=== PATIENT | female | born 1960 | race Caucasian/White ===

== ENCOUNTER 2018-08-03 12:49 | Inpatient (IN) | payer BC ==
[2018-08-03] MEDS: SOD CHLORIDE 0.9% 500 ML IV (14:29)
[2018-08-03 14:30] LABS: ADD MAN DIFF? NO
[2018-08-03 14:33] LABS: BASOPHIL # 0.1 10^3/ul (0.0-0.1); BASOPHILS % 0.6 % (0.0-2.0); EOSINOPHILS # 0.1 10^3/ul (0.0-0.5); EOSINOPHILS % 0.8 % (0.0-7.0); HEMATOCRIT 32.4 % (37.0-47.0); HEMOGLOBIN 10.7 g/dl (12.0-16.0); LYMPHOCYTES # 1.7 10^3/ul (0.8-2.9); LYMPHOCYTES % 20.3 % (15.0-51.0); MEAN CORPUSCULAR HEMOGLOBIN 29.7 pg (29.0-33.0); MEAN PLATELET VOLUME 9.5 fl (7.4-10.4); MONOCYTE # 0.5 10^3/ul (0.3-0.9); MONOCYTES % 6.2 % (0.0-11.0); NEUTROPHILS % 71.2 % (39.0-77.0); PLATELET COUNT 541 10^3/UL (140-415); RED CELL DISTRIBUTION WIDTH 15.6 % (11.5-14.5)
[2018-08-03 14:33] LABS: WHITE BLOOD COUNT 8.4 10^3/ul (4.8-10.8)
[2018-08-03 14:39] LABS: POSITIVE DIFF @See below
[2018-08-03 14:52] LABS: INR 1.65; PROTIME 19.6 Sec (11.9-14.9); PT RATIO 1.5
[2018-08-03 14:53] LABS: ALANINE AMINOTRANSFERASE 76 IU/L (13-69); ALBUMIN 3.3 g/dl (3.3-4.9); ALBUMIN/GLOBULIN RATIO 0.68; ALKALINE PHOSPHATASE 726 IU/L (42-121); ANION GAP 10 (5-13); ASPARTATE AMINO TRANSFERASE 117 IU/L (15-46); BILIRUBIN,INDIRECT 0.8 mg/dl (0-1.1); BILIRUBIN,TOTAL 4.4 mg/dl (0.2-1.3); BLOOD UREA NITROGEN 13 mg/dl (7-20); CALCIUM 9.1 mg/dl (8.4-10.2); CARBON DIOXIDE 25 mmol/L (21-31); CHLORIDE 104 mmol/L (97-110); CREATININE 0.45 mg/dl (0.44-1.00); Estimated GFR > 60 mL/min (>60); GLUCOSE 157 mg/dl (70-220); LIPASE 220 U/L (23-300); PARTIAL THROMBOPLASTIN TIME 43.1 Sec (23.0-35.0); POTASSIUM 3.9 mmol/L (3.5-5.1); SODIUM 139 mmol/L (135-144); TOTAL PROTEIN 8.1 g/dl (6.1-8.1)
[2018-08-03] MEDS: DIPHENHYDRAMINE 50 MG INJ IV (15:39)
[2018-08-03] MEDS ORDERED: SOD CHLORIDE 0.9% 1,000 ML IV (16:28)
[2018-08-03] MEDS ORDERED: ONDANSETRON 4 MG INJ IV ×2 (16:30→19:00)
[2018-08-03] MEDS ORDERED: ACETAMINOPHEN 325 MG TAB PO (16:30)
[2018-08-03 16:31] LABS: ANISOCYTOSIS 2+ (0-0); EOSINOPHILS % (M) 2 % (0-7); LYMPHOCYTES #M 1.1 10^3/ul (0.8-2.9); LYMPHOCYTES % (M) 14 % (15-51); MONOCYTE #M 0.6 10^3/ul (0.3-0.9); MONOCYTES % (M) 8 % (0-11); PLATELET MORPHOLOGY COMMENT @See below; SEGMENTED NEUTROPHILS (M) % 76 % (39-77); SMUDGE%M 3 % (0-0)
[2018-08-03] MEDS ORDERED: GLUCOSE GEL 15 GRAM TUBE BUCCAL (19:00)
[2018-08-03] MEDS ORDERED: GLUCAGON 1 MG INJ IM (19:00)
[2018-08-03] MEDS ORDERED: DEXTROSE 50% 50 ML SYRINGE IV (19:00)
[2018-08-03] MEDS ORDERED: GLUCOSE GEL 15 GRAM TUBE PO (19:00)
[2018-08-03] MEDS: INSULIN ASPART [NOVOLOG] 3 ML PEN SC (21:00)
[2018-08-03] MEDS: FAMOTIDINE 20 MG TAB PO (22:35)
[2018-08-03] MEDS: INSULIN GLARGINE [LANTus] (100 UNITS/ML) SYG SC (22:37)
[2018-08-03] MEDS: IBUPROFEN 600 MG TAB PO (23:07)
[2018-08-04] MEDS: ACCU-CHEK XX (02:00)
[2018-08-04 05:48] LABS: ADD MAN DIFF? NO
[2018-08-04 05:54] LABS: BASOPHILS % 0.6 % (0.0-2.0); EOSINOPHILS # 0.1 10^3/ul (0.0-0.5); EOSINOPHILS % 1.4 % (0.0-7.0); HEMOGLOBIN 10.8 g/dl (12.0-16.0); LYMPHOCYTES # 1.4 10^3/ul (0.8-2.9); LYMPHOCYTES % 19.7 % (15.0-51.0); MEAN CORPUSCULAR HEMOGLOBIN 30.1 pg (29.0-33.0); MEAN CORPUSCULAR HGB CONC 32.7 g/dl (32.0-37.0); MEAN CORPUSCULAR VOLUME 91.9 fl (82.0-101.0); MONOCYTE # 0.6 10^3/ul (0.3-0.9); NEUTROPHIL # 5.1 10^3/ul (1.6-7.5); NEUTROPHILS % 69.6 % (39.0-77.0); PLATELET COUNT 517 10^3/UL (140-415); RED BLOOD COUNT 3.59 10^6/ul (4.20-5.40); RED CELL DISTRIBUTION WIDTH 16.1 % (11.5-14.5)
[2018-08-04 05:54] LABS: WHITE BLOOD COUNT 7.3 10^3/ul (4.8-10.8)
[2018-08-04 07:11] LABS: ALANINE AMINOTRANSFERASE 76 IU/L (13-69); ALBUMIN 3.2 g/dl (3.3-4.9); ALBUMIN/GLOBULIN RATIO 0.62; ALKALINE PHOSPHATASE 784 IU/L (42-121); ANION GAP 13 (5-13); ASPARTATE AMINO TRANSFERASE 109 IU/L (15-46); BILIRUBIN,TOTAL 4.8 mg/dl (0.2-1.3); BLOOD UREA NITROGEN 11 mg/dl (7-20); CALCIUM 9.3 mg/dl (8.4-10.2); CARBON DIOXIDE 26 mmol/L (21-31); CHLORIDE 106 mmol/L (97-110); CHOL/HDL RATIO 13.1 RATIO; CHOLESTEROL 276 mg/dl (100-200); CREATININE 0.53 mg/dl (0.44-1.00); Estimated GFR > 60 mL/min (>60); GLUCOSE 93 mg/dl (70-220); HDL CHOLESTEROL 21 mg/dl (35-98); LDL CHOLESTEROL,CALCULATED 179 mg/dl; POTASSIUM 4.5 mmol/L (3.5-5.1); SODIUM 145 mmol/L (135-144); TOTAL PROTEIN 8.3 g/dl (6.1-8.1); TRIGLYCERIDES 381 mg/dl (0-149)
[2018-08-04] MEDS: INSULIN ASPART [NOVOLOG] 3 ML PEN SC ×4 (08:00→21:00)
[2018-08-04] MEDS: FAMOTIDINE 20 MG TAB PO ×2 (08:36→21:04)
[2018-08-04 08:37] LABS: HEMOGLOBIN A1C 6.1 % (0-5.9)
[2018-08-04] MEDS: METOPROLOL (XL) 50 MG TAB PO (08:38)
[2018-08-04] MEDS: DIPHENHYDRAMINE 25 MG CAP PO ×2 (10:20→22:42)
[2018-08-04] MEDS: IBUPROFEN 600 MG TAB PO (17:36)
[2018-08-04] MEDS: PHYTONADIONE 10 MG/ML INJ SC (21:04)
[2018-08-04] MEDS: INSULIN GLARGINE [LANTus] (100 UNITS/ML) SYG SC (21:08)
[2018-08-05] MEDS: ACCU-CHEK XX (02:00)
[2018-08-05 05:35] LABS: INR 1.26; PROTIME 15.9 Sec (11.9-14.9); PT RATIO 1.2
[2018-08-05 05:36] LABS: PARTIAL THROMBOPLASTIN TIME 38.7 Sec (23.0-35.0)
[2018-08-05] MEDS: INSULIN ASPART [NOVOLOG] 3 ML PEN SC ×5 (08:00→20:39)
[2018-08-05] MEDS: FAMOTIDINE 20 MG TAB PO ×2 (08:32→20:38)
[2018-08-05] MEDS: METOPROLOL (XL) 50 MG TAB PO (08:32)
[2018-08-05] MEDS: DEXTROSE 5%-0.45% NACL 1,000 ML IV (11:22)
[2018-08-05] MEDS: DIPHENHYDRAMINE 25 MG CAP PO (15:00)
[2018-08-05] MEDS: INSULIN GLARGINE [LANTus] (100 UNITS/ML) SYG SC (20:39)
[2018-08-05] MEDS: IBUPROFEN 600 MG TAB PO (22:57)
[2018-08-06] MEDS: ACCU-CHEK XX (01:14)
[2018-08-06] MEDS ORDERED: ACCU-CHEK XX (02:00)
[2018-08-06 06:22] LABS: ADD MAN DIFF? NO
[2018-08-06 06:29] LABS: BASOPHILS % 0.3 % (0.0-2.0); EOSINOPHILS # 0.1 10^3/ul (0.0-0.5); EOSINOPHILS % 1.1 % (0.0-7.0); HEMATOCRIT 29.8 % (37.0-47.0); HEMOGLOBIN 10.6 g/dl (12.0-16.0); LYMPHOCYTES # 1.5 10^3/ul (0.8-2.9); LYMPHOCYTES % 23.8 % (15.0-51.0); MEAN CORPUSCULAR HEMOGLOBIN 32.7 pg (29.0-33.0); MEAN CORPUSCULAR HGB CONC 35.6 g/dl (32.0-37.0); MEAN PLATELET VOLUME 10.3 fl (7.4-10.4); MONOCYTE # 0.5 10^3/ul (0.3-0.9); MONOCYTES % 7.8 % (0.0-11.0); NEUTROPHIL # 4.2 10^3/ul (1.6-7.5); NEUTROPHILS % 66.2 % (39.0-77.0); NUCLEATED RED BLOOD CELLS # 0.2 10^3/ul (0.0-0.0); NUCLEATED RED BLOOD CELLS% 2.4 /100WBC (0.0-0.0); PLATELET COUNT 470 10^3/UL (140-415); RED BLOOD COUNT 3.24 10^6/ul (4.20-5.40); RED CELL DISTRIBUTION WIDTH 16.5 % (11.5-14.5)
[2018-08-06 06:29] LABS: WHITE BLOOD COUNT 6.4 10^3/ul (4.8-10.8)
[2018-08-06 07:02] LABS: BLOOD UREA NITROGEN 15 mg/dl (7-20); CALCIUM 8.9 mg/dl (8.4-10.2); CARBON DIOXIDE 27 mmol/L (21-31); CREATININE 0.57 mg/dl (0.44-1.00); Estimated GFR > 60 mL/min (>60)
[2018-08-06 07:09] LABS: ANION GAP 10 (5-13); CHLORIDE 104 mmol/L (97-110); POTASSIUM 3.7 mmol/L (3.5-5.1); SODIUM 141 mmol/L (135-144)
[2018-08-06 07:16] LABS: GLUCOSE 46 mg/dl (70-220)
[2018-08-06] MEDS: DEXTROSE 50% 50 ML SYRINGE IV ×2 (07:21→08:38)
[2018-08-06] MEDS: INSULIN ASPART [NOVOLOG] 3 ML PEN SC ×4 (08:00→20:28)
[2018-08-06] MEDS: DIPHENHYDRAMINE 25 MG CAP PO (09:27)
[2018-08-06] MEDS: FAMOTIDINE 20 MG TAB PO ×2 (09:30→20:29)
[2018-08-06] MEDS: METOPROLOL (XL) 50 MG TAB PO (09:30)
[2018-08-06] MEDS: INSULIN GLARGINE [LANTus] (100 UNITS/ML) SYG SC (20:29)
[2018-08-06] MEDS: IBUPROFEN 600 MG TAB PO (21:47)
[2018-08-07] MEDS: GLUCOSE GEL 15 GRAM TUBE PO (01:50)
[2018-08-07] MEDS: ACCU-CHEK XX (03:00)
[2018-08-07 06:23] LABS: INR 1.04; PROTIME 13.7 Sec (11.9-14.9); PT RATIO 1.1
[2018-08-07 06:24] LABS: PARTIAL THROMBOPLASTIN TIME 34.9 Sec (23.0-35.0)
[2018-08-07 07:03] LABS: ALANINE AMINOTRANSFERASE 63 IU/L (13-69); ALBUMIN 3.1 g/dl (3.3-4.9); ALBUMIN/GLOBULIN RATIO 0.59; ALKALINE PHOSPHATASE 775 IU/L (42-121); ANION GAP 9 (5-13); ASPARTATE AMINO TRANSFERASE 117 IU/L (15-46); BILIRUBIN,TOTAL 5.1 mg/dl (0.2-1.3); BLOOD UREA NITROGEN 13 mg/dl (7-20); CALCIUM 8.9 mg/dl (8.4-10.2); CARBON DIOXIDE 27 mmol/L (21-31); CHLORIDE 105 mmol/L (97-110); CREATININE 0.54 mg/dl (0.44-1.00); Estimated GFR > 60 mL/min (>60); GLUCOSE 53 mg/dl (70-220); POTASSIUM 3.6 mmol/L (3.5-5.1); SODIUM 141 mmol/L (135-144); TOTAL PROTEIN 8.3 g/dl (6.1-8.1)
[2018-08-07] MEDS: DEXTROSE 50% 50 ML SYRINGE IV (07:43)
[2018-08-07] MEDS: INSULIN ASPART [NOVOLOG] 3 ML PEN SC ×4 (08:00→21:00)
[2018-08-07] MEDS: DIPHENHYDRAMINE 25 MG CAP PO (09:10)
[2018-08-07] MEDS: METOPROLOL (XL) 50 MG TAB PO (09:12)
[2018-08-07] MEDS: FAMOTIDINE 20 MG TAB PO ×2 (09:12→21:14)
[2018-08-07] MEDS: hydrOXYzine HCL 25 MG TAB PO (10:46)
[2018-08-07] MEDS: INSULIN GLARGINE [LANTus] (100 UNITS/ML) SYG SC ×2 (20:00→21:26)
[2018-08-08] MEDS: INSULIN ASPART [NOVOLOG] 3 ML PEN SC ×6 (00:54→21:09)
[2018-08-08] MEDS: ACCU-CHEK XX (02:15)
[2018-08-08 05:37] LABS: ADD MAN DIFF? NO
[2018-08-08 05:44] LABS: WHITE BLOOD COUNT 7.1 10^3/ul (4.8-10.8)
[2018-08-08 05:44] LABS: BASOPHILS % 0.6 % (0.0-2.0); EOSINOPHILS # 0.1 10^3/ul (0.0-0.5); HEMATOCRIT 29.5 % (37.0-47.0); HEMOGLOBIN 10.6 g/dl (12.0-16.0); LYMPHOCYTES # 1.6 10^3/ul (0.8-2.9); LYMPHOCYTES % 22.6 % (15.0-51.0); MEAN CORPUSCULAR HEMOGLOBIN 33.2 pg (29.0-33.0); MEAN CORPUSCULAR HGB CONC 35.9 g/dl (32.0-37.0); MEAN CORPUSCULAR VOLUME 92.5 fl (82.0-101.0); MEAN PLATELET VOLUME 9.9 fl (7.4-10.4); MONOCYTE # 0.5 10^3/ul (0.3-0.9); MONOCYTES % 7.2 % (0.0-11.0); NEUTROPHIL # 4.8 10^3/ul (1.6-7.5); NEUTROPHILS % 67.2 % (39.0-77.0); NUCLEATED RED BLOOD CELLS% 0.4 /100WBC (0.0-0.0); PLATELET COUNT 425 10^3/UL (140-415); RED BLOOD COUNT 3.19 10^6/ul (4.20-5.40)
[2018-08-08] MEDS ORDERED: LIDOCAINE 2% (SDV) 5 ML INJ (07:00)
[2018-08-08] MEDS ORDERED: ROCURONIUM 50 MG INJ (07:00)
[2018-08-08] MEDS: FAMOTIDINE 20 MG TAB PO ×2 (09:00→21:07)
[2018-08-08] MEDS: METOPROLOL (XL) 50 MG TAB PO (09:00)
[2018-08-08] MEDS: hydrOXYzine HCL 25 MG TAB PO (12:20)
[2018-08-08] MEDS: DEXTROSE 5%-0.45% NACL 1,000 ML IV (12:28)
[2018-08-08] MEDS ORDERED: PROPOFOL 20 ML (16:32)
[2018-08-08] MEDS ORDERED: DEXAMETHASONE 4 MG/ML 5 ML INJ (16:51)
[2018-08-08] MEDS ORDERED: ONDANSETRON 4 MG INJ (16:52)
[2018-08-08] MEDS ORDERED: IOHEXOL 300MG/ML 30 ML BTL (17:44)
[2018-08-08] MEDS ORDERED: METOCLOPRAMIDE 10 MG INJ IV (18:00)
[2018-08-08] MEDS ORDERED: hydrALAzine 20 MG INJ IV (18:00)
[2018-08-08] MEDS ORDERED: ALBUTEROL 0.083% (NEB) 2.5 MG/3 ML AMP HHN (18:00)
[2018-08-08] MEDS ORDERED: DIPHENHYDRAMINE 50 MG INJ IV (18:00)
[2018-08-08] MEDS ORDERED: LABETALOL HCL 20MG INJ IV (18:00)
[2018-08-08] MEDS ORDERED: FENTAnyl 50 MCG/ML VIAL IV ×3 (18:00)
[2018-08-08] MEDS ORDERED: ONDANSETRON 4 MG INJ IV (18:00)
[2018-08-08] MEDS ORDERED: MEPERIDINE 25 MG INJ IV (18:00)
[2018-08-08] MEDS ORDERED: EPHEDrine SULFATE 50 MG/5 ML SYG IV (18:00)
[2018-08-08] MEDS ORDERED: MIDAZOLAM 1 MG/ML 2 ML INJ IV (18:00)
[2018-08-08] MEDS ORDERED: HYDROmorphONE 1 MG/5 ML IV SYRINGE IV ×3 (18:00)
[2018-08-08] MEDS: LEVOFLOXACIN 500MG/D5W (PMX) 100 ML IVPB (18:34)
[2018-08-08] MEDS: INDOMETHACIN 50 MG SUPP PR (19:00)
[2018-08-08] MEDS: INSULIN GLARGINE [LANTus] (100 UNITS/ML) SYG SC (21:08)
[2018-08-09] MEDS: ACCU-CHEK XX (01:16)
[2018-08-09] MEDS ORDERED: ACCU-CHEK XX (02:00)
[2018-08-09 06:30] LABS: ANION GAP 10 (5-13); BLOOD UREA NITROGEN 14 mg/dl (7-20); CALCIUM 9.3 mg/dl (8.4-10.2); CARBON DIOXIDE 24 mmol/L (21-31); CHLORIDE 106 mmol/L (97-110); CREATININE 0.51 mg/dl (0.44-1.00); Estimated GFR > 60 mL/min (>60); GLUCOSE 245 mg/dl (70-220); POTASSIUM 4.7 mmol/L (3.5-5.1); SODIUM 140 mmol/L (135-144)
[2018-08-09] MEDS: INSULIN ASPART [NOVOLOG] 3 ML PEN SC ×4 (08:11→20:32)
[2018-08-09] MEDS: FAMOTIDINE 20 MG TAB PO ×2 (08:12→20:30)
[2018-08-09] MEDS: METOPROLOL (XL) 50 MG TAB PO (13:30)
[2018-08-09] MEDS: hydrOXYzine HCL 25 MG TAB PO ×2 (13:41→21:07)
[2018-08-09] MEDS: LEVOFLOXACIN 500MG/D5W (PMX) 100 ML IVPB (17:51)
[2018-08-09] MEDS: METOPROLOL 25 MG TAB PO (20:30)
[2018-08-09] MEDS: INSULIN GLARGINE [LANTus] (100 UNITS/ML) SYG SC (20:31)
[2018-08-10] MEDS: ACCU-CHEK XX (02:00)
[2018-08-10 06:41] LABS: ALANINE AMINOTRANSFERASE 76 IU/L (13-69); ALBUMIN 3.1 g/dl (3.3-4.9); ALBUMIN/GLOBULIN RATIO 0.59; ALKALINE PHOSPHATASE 706 IU/L (42-121); ANION GAP 10 (5-13); ASPARTATE AMINO TRANSFERASE 121 IU/L (15-46); BILIRUBIN,TOTAL 3.8 mg/dl (0.2-1.3); BLOOD UREA NITROGEN 18 mg/dl (7-20); CALCIUM 8.6 mg/dl (8.4-10.2); CARBON DIOXIDE 27 mmol/L (21-31); CHLORIDE 104 mmol/L (97-110); CREATININE 0.63 mg/dl (0.44-1.00); Estimated GFR > 60 mL/min (>60); GLUCOSE 114 mg/dl (70-220); POTASSIUM 4.1 mmol/L (3.5-5.1); SODIUM 141 mmol/L (135-144); TOTAL PROTEIN 8.3 g/dl (6.1-8.1)
[2018-08-10] MEDS: INSULIN ASPART [NOVOLOG] 3 ML PEN SC ×4 (08:00→21:00)
[2018-08-10] MEDS: METOPROLOL 25 MG TAB PO (09:00)
[2018-08-10] MEDS: IBUPROFEN 600 MG TAB PO (09:46)
[2018-08-10] MEDS: FAMOTIDINE 20 MG TAB PO ×2 (09:46→21:17)
[2018-08-10] MEDS: hydrOXYzine HCL 25 MG TAB PO ×2 (09:46→18:29)
[2018-08-10] MEDS: METOCLOPRAMIDE 5 MG TAB PO ×2 (12:33→21:00)
[2018-08-10] MEDS: LEVOFLOXACIN 500MG/D5W (PMX) 100 ML IVPB (18:30)
[2018-08-10] MEDS: INSULIN GLARGINE [LANTus] (100 UNITS/ML) SYG SC (21:18)
[2018-08-11] MEDS: ACCU-CHEK XX (02:00)
[2018-08-11] MEDS: LEVOFLOXACIN 500 MG TAB PO (05:30)
[2018-08-11] MEDS: IBUPROFEN 600 MG TAB PO (05:36)
[2018-08-11 07:13] LABS: ADD MAN DIFF? NO
[2018-08-11 07:14] LABS: WHITE BLOOD COUNT 6.5 10^3/ul (4.8-10.8)
[2018-08-11 07:14] LABS: BASOPHILS % 0.6 % (0.0-2.0); EOSINOPHILS # 0.1 10^3/ul (0.0-0.5); EOSINOPHILS % 1.1 % (0.0-7.0); HEMATOCRIT 31.5 % (37.0-47.0); HEMOGLOBIN 10.4 g/dl (12.0-16.0); LYMPHOCYTES # 1.5 10^3/ul (0.8-2.9); LYMPHOCYTES % 22.6 % (15.0-51.0); MEAN CORPUSCULAR HEMOGLOBIN 30.1 pg (29.0-33.0); MEAN PLATELET VOLUME 10.1 fl (7.4-10.4); MONOCYTE # 0.5 10^3/ul (0.3-0.9); NEUTROPHIL # 4.4 10^3/ul (1.6-7.5); NEUTROPHILS % 66.9 % (39.0-77.0); PLATELET COUNT 427 10^3/UL (140-415); RED BLOOD COUNT 3.46 10^6/ul (4.20-5.40)
[2018-08-11 07:31] LABS: ALANINE AMINOTRANSFERASE 71 IU/L (13-69); ALBUMIN 3.2 g/dl (3.3-4.9); ALBUMIN/GLOBULIN RATIO 0.64; ALKALINE PHOSPHATASE 731 IU/L (42-121); ANION GAP 9 (5-13); ASPARTATE AMINO TRANSFERASE 113 IU/L (15-46); BILIRUBIN,INDIRECT 0.9 mg/dl (0-1.1); BILIRUBIN,TOTAL 3.8 mg/dl (0.2-1.3); BLOOD UREA NITROGEN 16 mg/dl (7-20); CARBON DIOXIDE 27 mmol/L (21-31); CHLORIDE 106 mmol/L (97-110); CREATININE 0.55 mg/dl (0.44-1.00); Estimated GFR > 60 mL/min (>60); GLUCOSE 114 mg/dl (70-220); POTASSIUM 3.9 mmol/L (3.5-5.1); SODIUM 142 mmol/L (135-144); TOTAL PROTEIN 8.2 g/dl (6.1-8.1)
[2018-08-11] MEDS: INSULIN ASPART [NOVOLOG] 3 ML PEN SC ×4 (08:00→20:22)
[2018-08-11] MEDS: METOCLOPRAMIDE 5 MG TAB PO ×3 (09:03→20:20)
[2018-08-11] MEDS: FAMOTIDINE 20 MG TAB PO ×2 (09:03→20:20)
[2018-08-11] MEDS: INSULIN GLARGINE [LANTus] (100 UNITS/ML) SYG SC (20:22)
[2018-08-11] MEDS: hydrOXYzine HCL 25 MG TAB PO (20:29)
[2018-08-12] MEDS: ACCU-CHEK XX (01:05)
[2018-08-12] MEDS: LEVOFLOXACIN 500 MG TAB PO (05:52)
[2018-08-12 06:27] LABS: ALANINE AMINOTRANSFERASE 66 IU/L (13-69); ALBUMIN 3.2 g/dl (3.3-4.9); ALBUMIN/GLOBULIN RATIO 0.64; ALKALINE PHOSPHATASE 701 IU/L (42-121); ANION GAP 9 (5-13); ASPARTATE AMINO TRANSFERASE 118 IU/L (15-46); BILIRUBIN,TOTAL 3.2 mg/dl (0.2-1.3); BLOOD UREA NITROGEN 14 mg/dl (7-20); CALCIUM 9.1 mg/dl (8.4-10.2); CARBON DIOXIDE 23 mmol/L (21-31); CHLORIDE 109 mmol/L (97-110); Estimated GFR > 60 mL/min (>60); GLUCOSE 82 mg/dl (70-220); POTASSIUM 4.2 mmol/L (3.5-5.1); SODIUM 141 mmol/L (135-144); TOTAL PROTEIN 8.2 g/dl (6.1-8.1)
[2018-08-12] MEDS: INSULIN ASPART [NOVOLOG] 3 ML PEN SC ×4 (08:00→21:22)
[2018-08-12] MEDS: METOCLOPRAMIDE 5 MG TAB PO ×2 (09:55→13:00)
[2018-08-12] MEDS: FAMOTIDINE 20 MG TAB PO ×2 (09:55→21:21)
[2018-08-12] MEDS: hydrOXYzine HCL 25 MG TAB PO ×2 (10:01→21:21)
[2018-08-12] MEDS ORDERED: METOCLOPRAMIDE 5 MG TAB PO (16:00)
[2018-08-12] MEDS: INSULIN GLARGINE [LANTus] (100 UNITS/ML) SYG SC (21:23)
[2018-08-13] MEDS: ACCU-CHEK XX (02:00)
[2018-08-13] MEDS: DIPHENHYDRAMINE 25 MG CAP PO (02:28)
[2018-08-13 06:57] LABS: ALANINE AMINOTRANSFERASE 64 IU/L (13-69); ALBUMIN 3.2 g/dl (3.3-4.9); ALBUMIN/GLOBULIN RATIO 0.69; ALKALINE PHOSPHATASE 657 IU/L (42-121); ANION GAP 9 (5-13); ASPARTATE AMINO TRANSFERASE 110 IU/L (15-46); BILIRUBIN,INDIRECT 0.8 mg/dl (0-1.1); BILIRUBIN,TOTAL 2.4 mg/dl (0.2-1.3); BLOOD UREA NITROGEN 13 mg/dl (7-20); CALCIUM 8.9 mg/dl (8.4-10.2); CARBON DIOXIDE 23 mmol/L (21-31); CHLORIDE 107 mmol/L (97-110); CREATININE 0.47 mg/dl (0.44-1.00); Estimated GFR > 60 mL/min (>60); GLUCOSE 198 mg/dl (70-220); POTASSIUM 3.8 mmol/L (3.5-5.1); SODIUM 139 mmol/L (135-144); TOTAL PROTEIN 7.8 g/dl (6.1-8.1)
[2018-08-13] MEDS: hydrOXYzine HCL 25 MG TAB PO ×3 (08:10→22:34)
[2018-08-13] MEDS: MEGESTROL (40 MG/ML) 10ML CUP PO (08:10)
[2018-08-13] MEDS: FAMOTIDINE 20 MG TAB PO ×2 (08:10→20:51)
[2018-08-13] MEDS: INSULIN ASPART [NOVOLOG] 3 ML PEN SC ×4 (08:14→20:54)
[2018-08-13] MEDS: IBUPROFEN 600 MG TAB PO (15:31)
[2018-08-13] MEDS: INSULIN GLARGINE [LANTus] (100 UNITS/ML) SYG SC (20:55)
[2018-08-14] MEDS: ACCU-CHEK XX (02:00)
[2018-08-14 05:22] LABS: ADD MAN DIFF? NO
[2018-08-14 05:33] LABS: WHITE BLOOD COUNT 6.1 10^3/ul (4.8-10.8)
[2018-08-14 05:33] LABS: BASOPHILS % 0.5 % (0.0-2.0); EOSINOPHILS % 0.7 % (0.0-7.0); HEMOGLOBIN 10.6 g/dl (12.0-16.0); LYMPHOCYTES # 1.4 10^3/ul (0.8-2.9); LYMPHOCYTES % 23.8 % (15.0-51.0); MEAN CORPUSCULAR HEMOGLOBIN 29.9 pg (29.0-33.0); MEAN CORPUSCULAR HGB CONC 33.1 g/dl (32.0-37.0); MEAN CORPUSCULAR VOLUME 90.4 fl (82.0-101.0); MEAN PLATELET VOLUME 9.9 fl (7.4-10.4); MONOCYTE # 0.4 10^3/ul (0.3-0.9); MONOCYTES % 7.3 % (0.0-11.0); NEUTROPHIL # 4.1 10^3/ul (1.6-7.5); PLATELET COUNT 388 10^3/UL (140-415); RED BLOOD COUNT 3.54 10^6/ul (4.20-5.40)
[2018-08-14 06:31] LABS: ALANINE AMINOTRANSFERASE 70 IU/L (13-69); ALKALINE PHOSPHATASE 599 IU/L (42-121); ASPARTATE AMINO TRANSFERASE 101 IU/L (15-46); BILIRUBIN,INDIRECT 0.8 mg/dl (0-1.1); BILIRUBIN,TOTAL 1.7 mg/dl (0.2-1.3); TOTAL PROTEIN 7.4 g/dl (6.1-8.1)
[2018-08-14 06:36] LABS: ALANINE AMINOTRANSFERASE 67 IU/L (13-69); ALBUMIN 3.2 g/dl (3.3-4.9); ALBUMIN/GLOBULIN RATIO 0.69; ALKALINE PHOSPHATASE 598 IU/L (42-121); ANION GAP 8 (5-13); ASPARTATE AMINO TRANSFERASE 98 IU/L (15-46); BILIRUBIN,INDIRECT 0.7 mg/dl (0-1.1); BILIRUBIN,TOTAL 1.6 mg/dl (0.2-1.3); BLOOD UREA NITROGEN 14 mg/dl (7-20); CALCIUM 8.7 mg/dl (8.4-10.2); CARBON DIOXIDE 25 mmol/L (21-31); CHLORIDE 107 mmol/L (97-110); CREATININE 0.46 mg/dl (0.44-1.00); Estimated GFR > 60 mL/min (>60); GLUCOSE 333 mg/dl (70-220); POTASSIUM 4.2 mmol/L (3.5-5.1); SODIUM 140 mmol/L (135-144); TOTAL PROTEIN 7.8 g/dl (6.1-8.1)
[2018-08-14] MEDS: INSULIN ASPART [NOVOLOG] 3 ML PEN SC ×6 (07:58→21:03)
[2018-08-14] MEDS: FAMOTIDINE 20 MG TAB PO ×2 (09:08→20:44)
[2018-08-14] MEDS: MEGESTROL (40 MG/ML) 10ML CUP PO (09:08)
[2018-08-14] MEDS: hydrOXYzine HCL 25 MG TAB PO ×2 (09:08→16:09)
[2018-08-14] MEDS: INSULIN GLARGINE [LANTus] (100 UNITS/ML) SYG SC (20:45)
[2018-08-15] MEDS: hydrOXYzine HCL 25 MG TAB PO ×4 (01:13→20:29)
[2018-08-15] MEDS: IBUPROFEN 600 MG TAB PO ×2 (01:18→21:03)
[2018-08-15] MEDS: ACCU-CHEK XX (02:00)
[2018-08-15 07:23] LABS: ADD MAN DIFF? NO
[2018-08-15 07:49] LABS: WHITE BLOOD COUNT 7.6 10^3/ul (4.8-10.8)
[2018-08-15 07:49] LABS: BASOPHILS % 0.5 % (0.0-2.0); EOSINOPHILS % 0.5 % (0.0-7.0); HEMATOCRIT 31.9 % (37.0-47.0); HEMOGLOBIN 10.5 g/dl (12.0-16.0); LYMPHOCYTES # 1.8 10^3/ul (0.8-2.9); LYMPHOCYTES % 24.2 % (15.0-51.0); MEAN CORPUSCULAR HEMOGLOBIN 30.4 pg (29.0-33.0); MEAN CORPUSCULAR HGB CONC 32.9 g/dl (32.0-37.0); MEAN CORPUSCULAR VOLUME 92.5 fl (82.0-101.0); MEAN PLATELET VOLUME 10.3 fl (7.4-10.4); MONOCYTE # 0.6 10^3/ul (0.3-0.9); MONOCYTES % 8.2 % (0.0-11.0); NEUTROPHILS % 66.1 % (39.0-77.0); PLATELET COUNT 369 10^3/UL (140-415); RED BLOOD COUNT 3.45 10^6/ul (4.20-5.40)
[2018-08-15 07:54] LABS: ALANINE AMINOTRANSFERASE 54 IU/L (13-69); ALBUMIN 3.3 g/dl (3.3-4.9); ALKALINE PHOSPHATASE 538 IU/L (42-121); ANION GAP 9 (5-13); ASPARTATE AMINO TRANSFERASE 78 IU/L (15-46); BILIRUBIN,INDIRECT 0.7 mg/dl (0-1.1); BLOOD UREA NITROGEN 13 mg/dl (7-20); CALCIUM 9.1 mg/dl (8.4-10.2); CARBON DIOXIDE 24 mmol/L (21-31); CHLORIDE 108 mmol/L (97-110); Estimated GFR > 60 mL/min (>60); GLUCOSE 218 mg/dl (70-220); POTASSIUM 4.3 mmol/L (3.5-5.1); SODIUM 141 mmol/L (135-144)
[2018-08-15] MEDS: FAMOTIDINE 20 MG TAB PO ×2 (08:07→20:29)
[2018-08-15] MEDS: MEGESTROL (40 MG/ML) 10ML CUP PO (08:07)
[2018-08-15] MEDS: INSULIN ASPART [NOVOLOG] 3 ML PEN SC ×7 (08:08→20:34)
[2018-08-15] MEDS: INSULIN GLARGINE [LANTus] (100 UNITS/ML) SYG SC (20:34)
[2018-08-16] MEDS: INSULIN ASPART [NOVOLOG] 3 ML PEN SC ×9 (01:10→21:11)
[2018-08-16] MEDS: ACCU-CHEK XX ×3 (01:12→21:26)
[2018-08-16 06:00] LABS: ALANINE AMINOTRANSFERASE 53 IU/L (13-69); ALBUMIN 3.3 g/dl (3.3-4.9); ALBUMIN/GLOBULIN RATIO 0.71; ALKALINE PHOSPHATASE 477 IU/L (42-121); ANION GAP 11 (5-13); ASPARTATE AMINO TRANSFERASE 76 IU/L (15-46); BILIRUBIN,INDIRECT 0.5 mg/dl (0-1.1); BILIRUBIN,TOTAL 0.5 mg/dl (0.2-1.3); BLOOD UREA NITROGEN 15 mg/dl (7-20); CALCIUM 9.2 mg/dl (8.4-10.2); CARBON DIOXIDE 23 mmol/L (21-31); CHLORIDE 107 mmol/L (97-110); CREATININE 0.44 mg/dl (0.44-1.00); Estimated GFR > 60 mL/min (>60); GLUCOSE 270 mg/dl (70-220); POTASSIUM 4.6 mmol/L (3.5-5.1); SODIUM 141 mmol/L (135-144); TOTAL PROTEIN 7.9 g/dl (6.1-8.1)
[2018-08-16] MEDS: MEGESTROL (40 MG/ML) 10ML CUP PO (09:44)
[2018-08-16] MEDS: FAMOTIDINE 20 MG TAB PO ×2 (09:44→21:10)
[2018-08-16] MEDS: INSULIN GLARGINE [LANTus] (100 UNITS/ML) SYG SC ×2 (21:07)
[2018-08-16] MEDS: HYDROCORTISONE 250 MG INJ IV (21:10)
[2018-08-16] MEDS: DIPHENHYDRAMINE 50 MG INJ IV (21:10)
[2018-08-16] MEDS: IBUPROFEN 600 MG TAB PO (21:30)
[2018-08-16] MEDS: hydrOXYzine HCL 25 MG TAB PO (22:07)
[2018-08-17] MEDS: INSULIN ASPART [NOVOLOG] 3 ML PEN SC ×9 (01:16→20:34)
[2018-08-17] MEDS: ACCU-CHEK XX ×8 (02:00→21:00)
[2018-08-17] MEDS: METHYLPREDNISOLONE 4 MG TAB PO ×2 (05:29→08:12)
[2018-08-17] MEDS: DIPHENHYDRAMINE 50 MG INJ IV ×2 (05:29→08:11)
[2018-08-17] MEDS: FAMOTIDINE 20 MG TAB PO ×2 (08:11→20:36)
[2018-08-17] MEDS: MEGESTROL (40 MG/ML) 10ML CUP PO (08:11)
[2018-08-17] MEDS: SOD CHLORIDE 0.9% 100 ML (10:35)
[2018-08-17] MEDS: IOHEXOL 100 ML (10:36)
[2018-08-17] MEDS: IOHEXOL 350MG/ML 50 ML BTL (10:36)
[2018-08-17] MEDS: NPH, HUMAN INSULIN ISOPHANE 3ML VIAL SC ×2 (15:38→23:49)
[2018-08-17] MEDS ORDERED: metFORMIN 500 MG TAB NGT (18:05)
[2018-08-17] MEDS ORDERED: INSULIN ASPART [NOVOLOG] 3 ML PEN SC (18:05)
[2018-08-17] MEDS ORDERED: INSULIN GLARGINE [LANTus] (100 UNITS/ML) SYG SC (20:00)
[2018-08-17] MEDS: INSULIN GLARGINE [LANTus] (100 UNITS/ML) SYG SC (20:33)
[2018-08-17] MEDS: hydrOXYzine HCL 25 MG TAB PO (20:38)
[2018-08-18] MEDS: ACCU-CHEK XX ×6 (02:58→17:37)
[2018-08-18] MEDS: hydrOXYzine HCL 25 MG TAB PO (03:01)
[2018-08-18] MEDS: IBUPROFEN 600 MG TAB PO (03:01)
[2018-08-18 06:53] LABS: ALBUMIN/GLOBULIN RATIO 0.82; ANION GAP 16 (5-13); BILIRUBIN,TOTAL 0.6 mg/dl (0.2-1.3); Estimated GFR > 60 mL/min (>60)
[2018-08-18 07:16] LABS: ALANINE AMINOTRANSFERASE 75 IU/L (13-69); ALBUMIN 3.7 g/dl (3.3-4.9); ALKALINE PHOSPHATASE 430 IU/L (42-121); ASPARTATE AMINO TRANSFERASE 65 IU/L (15-46); BILIRUBIN,INDIRECT 0.6 mg/dl (0-1.1); BLOOD UREA NITROGEN 19 mg/dl (7-20); CALCIUM 10.2 mg/dl (8.4-10.2); CARBON DIOXIDE 25 mmol/L (21-31); CHLORIDE 102 mmol/L (97-110); CREATININE 0.48 mg/dl (0.44-1.00); GLUCOSE 276 mg/dl (70-220); POTASSIUM 4.5 mmol/L (3.5-5.1); SODIUM 143 mmol/L (135-144); TOTAL PROTEIN 8.2 g/dl (6.1-8.1)
[2018-08-18] MEDS: INSULIN ASPART [NOVOLOG] 3 ML PEN SC ×6 (08:24→17:37)
[2018-08-18] MEDS: MEGESTROL (40 MG/ML) 10ML CUP PO (08:26)
[2018-08-18] MEDS: FAMOTIDINE 20 MG TAB PO (08:26)
== END 2018-08-18 19:15 | disposition home or self-care (01) | DRG 435 ==
LOC: PP2 08-17 22:01 → E/R 12:49 → PP2 17:28
PROC: 0FB78ZX Excision of Common Hepatic Duct, Via Natural or Artificial Opening Endoscopic, Diagnostic (ICD-10-PCS; principal; 2018-08-08 16:00)
PROC: 0F798DZ Dilation of Common Bile Duct with Intraluminal Device, Via Natural or Artificial Opening Endoscopic (ICD-10-PCS; 2018-08-08 16:00)
PROC: 0FC98ZZ Extirpation of Matter from Common Bile Duct, Via Natural or Artificial Opening Endoscopic (ICD-10-PCS; 2018-08-08 16:00)
PROC: 0FPB8DZ Removal of Intraluminal Device from Hepatobiliary Duct, Via Natural or Artificial Opening Endoscopic (ICD-10-PCS; 2018-08-08 16:00)
DX: C22.1 Intrahepatic bile duct carcinoma (principal); K83.1 Obstruction of bile duct; K83.09 Other cholangitis; T85.520A Displacement of bile duct prosthesis, initial encounter; E11.8 Type 2 diabetes mellitus with unspecified complications; I10 Essential (primary) hypertension; F17.200 Nicotine dependence, unspecified, uncomplicated; E78.5 Hyperlipidemia, unspecified; E11.65 Type 2 diabetes mellitus with hyperglycemia; Y83.8 Other surgical procedures as the cause of abnormal reaction of the patient, or of later complication, without mention of misadventure at the time of the procedure; Z79.4 Long term (current) use of insulin
CPT/HCPCS: 36415; 71045; 74018; 74178; 74181; 74330; 76705; 78226; 80048; 80053; 80061; 80076; 82962; 83036; 83690; 85025; 85610; 85730; 88305; 93005; 96361; 96374; 99285-25